=== PATIENT | female | born 1995 | race American Indian/Alaskan Native ===

== ENCOUNTER 2017-01-22 02:27 | Emergency (ER) | payer MEDICAID ==
[2017-01-22 02:41] VITALS: BP 112/73
== END 2017-01-22 05:42 | disposition left against medical advice (07) ==
LOC: ED 02:27
DX: T78.40XA Allergy, unspecified, initial encounter (principal); Z53.21 Procedure and treatment not carried out due to patient leaving prior to being seen by health care provider; X58.XXXA Exposure to other specified factors, initial encounter; Y93.9 Activity, unspecified; Y92.9 Unspecified place or not applicable; Y99.9 Unspecified external cause status